=== PATIENT | male | born 1980 | race Caucasian/White ===

== ENCOUNTER 2024-01-02 17:49 | Emergency (ER) | payer OTHER ==
[~2024-01-02] VITALS: Ht 177.8 cm; Wt 88.2 kg
[2024-01-02 17:54] VITALS: TEMP 98.1
[2024-01-02] MEDS ORDERED: Morphine 4 MG/ML VIAL IV ONE ×2 (19:00→20:15)
[2024-01-02 19:15] LABS: PH 6.5 (5.0-8.5); URINE APPEARANCE CLOUDY (CLEAR/HAZY); URINE BLOOD 3+ (NEGATIVE); URINE COLOR ORANGE (YELLOW); URINE GLUCOSE 3+ (NEGATIVE); URINE KETONE TRACE (NEGATIVE); URINE NITRATE NEGATIVE (NEGATIVE); URINE PROTEIN(semi-quant) 1+ (NEGATIVE)
[2024-01-02 19:21] LABS: CALCIUM 9.3 mg/dL (8.4-10.2); CREATININE, serum 1.43 mg/dL (0.72-1.25); POTASSIUM 3.6 mEq/L (3.5-4.5)
[2024-01-02] MEDS ORDERED: Iohexol 300 - 100 ML VIAL IV ONE (19:29)
[2024-01-02] MEDS ORDERED: NS 50 ML IV ONE (19:31)
[2024-01-02 19:32] LABS: URINE RBC >50 /hpf (0-2)
[2024-01-02 19:33] LABS: COLLECTION METHOD CLEAN CATCH
[2024-01-02] MEDS ORDERED: Ketorolac 15 MG/ML VIAL IV ONE (20:30)
[2024-01-02] MEDS ORDERED: NS 1,000 ML IV ONE (20:30)
[2024-01-02] MEDS ORDERED: FLOMAX 0.40.4 MG/CAP PO (21:20)
[2024-01-02] MEDS ORDERED: TORADOL 10MG TA10 MG PO (21:20)
[2024-01-02 22:20] VITALS: BP 132/98; PULSE 92
== END 2024-01-02 22:20 | disposition home or self-care (01) ==
LOC: COL.ER 17:49
PROVIDERS: Physician Assistant
DX: N13.2 Hydronephrosis with renal and ureteral calculous obstruction (principal); F17.210 Nicotine dependence, cigarettes, uncomplicated
CPT/HCPCS: J1885; J2270; J7030; Q9967